=== PATIENT | male | born 1965 | race Hispanic/Latino ===

== ENCOUNTER 2020-02-26 08:23 | Emergency (ER) | payer BC, OTHER ==
[2020-02-26] MEDS ORDERED: Lidocaine 1% (PF) 30 ML VIAL ONE (08:44)
[2020-02-26] MEDS ORDERED: Lidocaine 1% w/Epinephrine 1:100K 30 ML VIAL ONE (08:46)
[2020-02-26] MEDS ORDERED: Adacel (T-DAP) 0.5 ML SYRINGE ONE (08:55)
== END 2020-02-26 09:05 | disposition home or self-care (01) ==
LOC: NAV ERS 08:23
DX: L02.416 Cutaneous abscess of left lower limb (principal); I10 Essential (primary) hypertension
CPT/HCPCS: 90471; 90715; J2001

== ENCOUNTER 2021-09-23 10:48 | Emergency (ER) | payer BC | END 2021-09-23 12:30 | disposition home or self-care (01) | LOC: NAV ERS 10:48 | DX: S82.62XA Displaced fracture of lateral malleolus of left fibula, initial encounter for closed fracture (principal); F10.20 Alcohol dependence, uncomplicated; W17.2XXA Fall into hole, initial encounter | CPT/HCPCS: 29515 ==